=== PATIENT | male | born 1985 | race Caucasian/White ===

== ENCOUNTER 2022-06-12 17:07 | Emergency (ER) | payer OTHER, SELFPAY ==
--- NOTE | ~2022-06-12 | XR_ITS ---
EXAMINATION: XR LUMBOSACRAL SPINE CLINICAL INFORMATION: Shoveling snow now with back pain COMPARISON: None TECHNIQUE: Three views of the lumbosacral spine. FINDINGS: Some minimal spondylitic changes are seen with some minor disc space narrowing at L2-L3. Some mild endplate changes are seen at the superior endplates of L3-L5. No fractures or destructive lesions. A radiopaque ovoid structure is present overlying the left hemipelvis XR/XR lumbar spine 2-3V IMPRESSION: Mild degenerative changes as described above. No acute finding.
[2022-06-12 17:28] VITALS: BP 125/81; PULSE 88; RESP 18; TEMP 37.2; O2SAT 96; BMI 27.2
--- NOTE | 2022-06-12 17:32 | ED_ITS ---
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 He states when he was shoveling he felt a crack in his back x3 and has had difficulty ambulating stents. He states it is severe in nature, he took ibuprofen and gabapentin at home prior to coming in. He denies any bowel or bladder incontinence. He states the pain is worse with movement and trying to walk. <MARIAN Rose - Last Filed: 06/12/22 21:13> MD elicited complaint: back pain and back injury <MARIAN Rose - Last Filed: 06/12/22 21:13> Onset (ago): hour(s) <MARIAN Rose - Last Filed: 06/12/22 21:13> Timing: constant <MARIAN Rose - Last Filed: 06/12/22 21:13> Severity: severe <MARIAN Rose - Last Filed: 06/12/22 21:13> Pain scale (0-10): 8 <MARIAN Rose - Last Filed: 06/12/22 21:13> Similar Symptoms Previously: No <MARIAN Rose - Last Filed: 06/12/22 21:13> Quality: sharp <MARIAN Rose - Last Filed: 06/12/22 21:13> Radiation: none <MARIAN Rose - Last Filed: 06/12/22 21:13> Exacerbating factors: movement and walking <MARIAN Rose - Last Filed: 06/12/22 21:13> Relieving factors: immobilization <MARIAN Rose - Last Filed: 06/12/22 21:13> Context: while lifting and turning/twisting <MARIAN Rose - Last Filed: 06/12/22 21:13> Associated symptoms: denies other symptoms <MARIAN Rose - Last Filed: 06/12/22 21:13> Treatments prior to arrival: NSAIDS and other medications <MARIAN Rose - Last Filed: 06/12/22 21:13> Work related injury: No <MARIAN Rose - Last Filed: 06/12/22 21:13> Related Data Home Medications: Previous Rx's Medication Instructions Recorded cyclobenzaprine 10 mg tablet 10 mg PO TID PRN muscle spasm #14 06/12/22 tabs hydrocodone 5 mg-acetaminophen 325 1 tab PO Q8H PRN severe pain 06/12/22 mg tablet (scale score 7-10) #5 tabs ibuprofen 600 mg tablet 600 mg PO Q8H PRN pain #14 tabs 06/12/22 lidocaine 5 % topical patch 1 patch topical DAILY #15 ea 06/12/22 <Ashanti Peng NP - Last Filed: 06/12/22 17:34> Allergies/Adverse Reactions: Allergies Allergy/AdvReac Type Severity Reaction Status Date / Time No Known Allergies Allergy Verified 06/12/22 17:26 <Ashanti Peng NP - Last Filed: 06/12/22 17:34> Review of Systems Review of Systems: Constitutional: No Fever, No Chills Cardiovascular: No Chest Pain, No SOB Gastrointestinal: No Nausea, No Vomiting, No Diarrhea, No abdominal Pain Genitourinary: No Dysuria, No Urinary Frequency, No Hematuria, no incontinence Musculoskeletal: + joint pain, +Myalgias Skin: No Skin Lesions, No rash Neuro: No Weakness, No Numbness, No Dizziness, No Headache Heme/Lymph: No Bruising, No Lymphadenopathy <MARIAN Rose Last Filed: 06/12/22 21:13> COUNTS INCLUDE 234 BEDS AT THE [facility] Social History Social History: Social History Advance Directives: No Advance Directives Information Provided: Yes <Ashanti Peng NP - Last Filed: 06/12/22 17:34> Physical Exam Vital Signs: Vital Signs: Last Vital Signs Temp 99 F 06/12/22 17:28 Pulse 88 06/12/22 17:28 Resp 18 06/12/22 17:28 BP 125/81 06/12/22 17:28 Pulse Ox 96 06/12/22 17:28 O2 Del Method 06/12/22 17:28 BMI result Body Mass Index 27.2 <Ashanti Peng NP - Last Filed: 06/12/22 17:34> Vital Signs: Last Vital Signs Temp 99 F 06/12/22 17:28 Pulse 88 06/12/22 17:28 Resp 18 06/12/22 17:28 BP 125/81 06/12/22 17:28 Pulse Ox 96 06/12/22 17:28 O2 Del Method 06/12/22 17:28 BMI result Body Mass Index 27.2 <MARIAN Rose - Last Filed: 06/12/22 21:13> Appearance: Alert. Oriented X3. No acute distress. HEENT: normal inspection CVS: Normal heart rate and rhythm. Pulses normal. Respiratory: No respiratory distress. Skin: Skin warm and dry. Normal skin color. Normal skin turgor. No rashes. Back: soft tissue tenderness throughout the entire lumbar area, L>R. Extremities: normal inspection, normal ROM. +straight leg raise bilaterally at 30 degrees Neuro: Oriented X 3. No motor deficit. No sensory deficit. <MARIAN Rose - Last Filed: 06/12/22 21:13> Course Course Course Narrative: This is a rapid medical exam. Deferred additional HPI, ROS and PE to primary provider. 37-year-old male here with lower back pain after shoveling earlier today and feeling a cracking sensation in his lower back. Patient took gabapentin and ibuprofen prior to arrival. Patient reports difficulty with ambulating since the injury. Will check x-ray. Vitals stable <Ashanti Peng NP - Last Filed: 06/12/22 17:34> Reevaluation(s) Reevaluation #1: X-ray showing some mild degenerative changes, no traumatic injury. He has no red flag symptoms of low back pain. After medication patient is up ambulating to the bathroom with no assistance. Comfortable discharge home with symptomatic management for lumbar strain. Stable for DC. <MARIAN Rose - Last Filed: 06/12/22 21:13> Medications Administered Discontinued Medications Generic Name Dose Route Start Last Admin Trade Name Freq PRN Reason Stop Dose Admin Ketorolac Tromethamine 30 mg 06/12/22 19:52 06/12/22 19:58 Ketorolac Tromethamine 30 Mg/Ml Vial IM 06/12/22 19:53 30 mg ONCE ONE Administration Oxycodone HCl 5 mg 06/12/22 19:08 06/12/22 19:25 Oxycodone Hcl Immed Release 5 Mg Tablet PO 06/12/22 19:09 5 mg ONCE ONE Administration <Ashanti Peng NP - Last Filed: 06/12/22 17:34> Medications Administered Discontinued Medications Generic Name Dose Route Start Last Admin Trade Name Freq PRN Reason Stop Dose Admin Ketorolac Tromethamine 30 mg 06/12/22 19:52 06/12/22 19:58 Ketorolac Tromethamine 30 Mg/Ml Vial IM 06/12/22 19:53 30 mg ONCE ONE Administration Oxycodone HCl 5 mg 06/12/22 19:08 06/12/22 19:25 Oxycodone Hcl Immed Release 5 Mg Tablet PO 06/12/22 19:09 5 mg ONCE ONE Administration <MARIAN Rose - Last Filed: 06/12/22 21:13> Discharge Plan Discharge Clinical Impression: Strain of lumbar region <Ashanti Peng NP - Last Filed: 06/12/22 17:34> Patient Disposition: Home, Self-Care <Ashanti Peng NP - Last Filed: 06/12/22 17:34> Instructions: Low Back Strain (ED), Lower Back Exercises (ED) <Ashanti Peng NP - Last Filed: 06/12/22 17:34> Additional Instructions: Your x-ray today did not show any traumatic injuries. No bending, lifting or twisting. Use ice several times per day for 20 minutes at a time for the next 48 hours and then change to heat. Take medications as prescribed to help with pain and discomfort. Follow up with your Primary Care Doctor this week. If your pain worsens, if you develop new numbness, tingling, weakness, loss of function or incontinence call 911 or come back to the ER right away for evaluation. [place] radiograf?a de hoy no mostr? ninguna lesi?n traum?lauro. Sin doblar, levantar o torcer. Use hielo varias veces al d?a marcy 20 minutos a la vez marcy las pr?ximas 48 horas y luego cambie a calor. [place] los medicamentos seg?n lo prescrito para ayudar con el dolor y la incomodidad. Richard un seguimiento con paris m?dico de atenci?n primaria esta semana. Si paris dolor empeora, si desarrolla entumecimiento, hormigueo, debilidad, p?rdida de funci?n o incontinencia, llame al 911 o regrese a la mary de emergencias de inmediato para ted evaluaci?n. <Ashanti Peng NP - Last Filed: 06/12/22 17:34> Prescriptions: New cyclobenzaprine 10 mg tablet 10 mg PO TID PRN (Reason: muscle spasm) Qty: 14 0RF ibuprofen 600 mg tablet 600 mg PO Q8H PRN (Reason: pain) Qty: 14 0RF lidocaine 5 % adhesive patch,medicated 1 patch topical DAILY Qty: 15 0RF Rx Instructions: leave on most painful area for up to 12 hrs hydrocodone-acetaminophen 5-325 mg tablet 1 tab PO Q8H PRN (Reason: severe pain (scale score 7-10)) Qty: 5 0RF Rx Instructions: Partial Fill upon patient request. <Ashanti Peng NP - Last Filed: 06/12/22 17:34> Stand Alone Forms: Work/School Release <Ashanti Peng NP - Last Filed: 06/12/22 17:34> Interventions: ED Discharge Assessment Last Done: 06/12/22 21:02 <Ashanti Peng NP - Last Filed: 06/12/22 17:34> Discharge Date/Time: 06/12/22 21:02 <Ashanti Peng NP - Last Filed: 06/12/22 17:34>
[2022-06-12] MEDS: oxyCODONE HCl Immed Release 5 MG TABLET PO (19:25)
[2022-06-12] MEDS: Ketorolac Tromethamine 30 MG/ML VIAL IM (19:58)
--- NOTE | 2022-06-12 20:00 | PC.NURSE ---
pt medicated for pain per order
--- NOTE | 2022-06-12 20:38 | PC.NURSE ---
pr given oxycodone 5mg and toradol IM for 10/10 back pain from shoveling. pt observed ambulating with minimal assistance oob to BR and back.
== END 2022-06-12 21:02 | disposition home or self-care (01) ==
PROVIDERS: Emergency Provider Emergency Medicine; PCP Nurse Practitioner Family
DX: S39.012A Strain of muscle, fascia and tendon of lower back, initial encounter (principal); X50.0XXA Overexertion from strenuous movement or load, initial encounter; Y93.H1 Activity, digging, shoveling and raking; Y92.038 Other place in apartment as the place of occurrence of the external cause; Y99.9 Unspecified external cause status
CPT/HCPCS: 72100; 96372; 99283; 99284; J1885

== ENCOUNTER 2022-09-16 10:58 | Emergency (ER) | payer OTHER, SELFPAY ==
--- NOTE | ~2022-09-16 | CT_ITS ---
EXAMINATION: CT ABDOMEN AND PELVIS WITHOUT CONTRAST CLINICAL INFORMATION: Right flank pain. Right lower quadrant pain. Nausea. Symptoms for 3 days. COMPARISON: Ultrasound abdomen 09/16/2022 TECHNIQUE: Multidetector volumetric imaging was performed from the superior aspect of the liver through the pubic symphysis. Sagittal and coronal reformatted images were obtained on the technologist's workstation. This CT examination was performed using dose optimization techniques as appropriate, variously including the following: *Automated exposure control *Adjustment of mA and/or kV according to patient size (this includes techniques or standardized protocols for targeted exams where dose is matched to indication/reason for exam; i.e. extremities or head) *Use of iterative reconstruction technique DLP: 584 mGy-cm FINDINGS: LUNG BASES: Mild right basilar atelectasis. LIVER, GALLBLADDER, AND BILIARY TREE: Hepatic hypoattenuation suggesting hepatic steatosis. Scattered small calcifications in the liver, has a chronic appearance, could represent granulomatous disease.. No focal hepatic lesion or biliary ductal dilatation is present. The gallbladder is unremarkable with no evidence of radiopaque gallstones, gallbladder wall thickening, or obvious pericholecystic inflammatory changes. PANCREAS: Unremarkable. SPLEEN: Unremarkable. ADRENAL GLANDS: Unremarkable. KIDNEYS AND URETERS: 2 small punctate nonobstructing calculi in the lower pole right kidney. Punctate nonobstructing calculi in the lower pole left kidney. No radiodense ureteral calculi. No hydronephrosis. No suspicious renal lesions. No significant perinephric stranding. BLADDER: Partially distended without gross abnormality. No radiodense calculi seen within the lumen of the bladder. GASTROINTESTINAL TRACT: Stomach has luminal contents limiting evaluation. No dilated small bowel loops. Small-moderate volume stool in the large colon. Prominent stool in the rectum. No colonic wall thickening or pericolonic inflammatory changes seen. Appendix appears unremarkable. No free fluid. No free air. ABDOMINAL WALL: Small fat-containing umbilical hernia. LYMPH NODES: No adenopathy by size criteria is seen in the abdomen or pelvis... VASCULAR: Normal caliber aorta. PELVIC VISCERA: Within normal limits OSSEOUS STRUCTURES: No acute or suspicious osseous abnormality. CT/CT abdomen pelvis wo IV con IMPRESSION: 1. Hepatic steatosis. Scattered liver calcifications could reflect metastatic disease. 2. Bilateral renal calculi. No hydronephrosis. 3. Otherwise, no acute findings identified in the abdomen or pelvis. Fleischner guidelines were followed.
--- NOTE | ~2022-09-16 | US_ITS ---
EXAMINATION: US ABDOMEN LIMITED CLINICAL INFORMATION: Right upper quadrant pain. Rule out: Cholelithiasis. COMPARISON: None available. TECHNIQUE: Real-time imaging of the right upper quadrant abdominal viscera. FINDINGS: PANCREAS: Normal. LIVER: Diffuse increased parenchymal echogenicity. Focal fatty sparing adjacent to the gallbladder. No focal hepatic lesion. There is no intrahepatic biliary duct dilatation seen. GALLBLADDER: Normal. The gallbladder is physiologically distended without evidence of stones, sludge, polyps, wall thickening or pericholecystic fluid. COMMON BILE DUCT: Normal in caliber measuring 0.4 cm in diameter. RIGHT KIDNEY: Normal. No hydronephrosis. No renal calculi or focal parenchymal lesions. The kidney measures 13 cm in maximum dimension. FREE FLUID: None. US/US abdomen limited IMPRESSION: There is generalized increase in hepatic echotexture, consistent with fatty infiltration or hepatocellular disease. Please correlate clinically. No focal hepatic mass or intrahepatic biliary duct dilatation is seen. No evidence of cholelithiasis.
[2022-09-16 11:09] VITALS: BP 118/67; PULSE 89; RESP 18; TEMP 36.6; O2SAT 95; BMI 27.2
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
[2022-09-16 11:41] LABS: MANUAL DIFF FLAG NO
[2022-09-16 11:42] LABS: Basophils Percent Auto 0.3 % (0-2); Eosinophils Absolute Auto 0.1 X10*3/uL (0.0-0.4); Eosinophils Percent Auto 1.4 % (0-4); Hematocrit 49.8 % (42.0-52.0); Hemoglobin 16.6 g/dl (14.0-18.0); Imm Gran Abs Auto 0.03 X10*3/uL (0.00-0.03); Imm Gran Pct Auto 0.5 % (0.0-0.4); Lymphocytes Absolute Auto 1.8 X10*3/uL (1.2-4.9); Lymphocytes Percent Auto 30.3 % (20-40); Mean Corpuscular HGB Conc 33.3 g/dl (31.0-36.0); Mean Corpuscular Hemoglobin 30.2 pg (27.0-33.0); Mean Corpuscular Volume 90.7 fL (80.0-98.0); Monocytes Absolute Auto 0.6 X10*3/uL (0.1-1.2); Monocytes Percent Auto 10.4 % (2-11); Neutrophils Absolute Auto 3.3 x10*3/uL (2.0-8.3); Neutrophils Percent Auto 57.1 % (45-73); Platelet Count 214 X10*3/uL (160-400); Red Blood Count 5.49 X10*6/uL (4.60-5.80); Red Cell Distribution Width 12.2 % (11.0-16.0); White Blood Count 5.8 X10*3/uL (4.8-10.8)
[2022-09-16 12:07] LABS: Alanine Aminotransferase 63 U/L (0-40); Alkaline Phosphatase 77 U/L (39-117); Anion Gap 12 (12-20); Aspartate Amino Transferase 35 U/L (5-37); Bilirubin Total 1.1 mg/dL (0.0-1.0); Blood Urea Nitrogen 15 mg/dL (9-16); Calcium 8.9 mg/dL (8.4-10.2); Carbon Dioxide 26 mmol/L (22-29); Chloride 103 mmol/L (96-108); Estimated Glomerular Filt Rate > 60; Glucose Random 244 mg/dL (60-115); Lipase 13 U/L (8-78); Magnesium 2.1 mg/dL (1.6-2.6); Sodium 137 mmol/L (135-145); Total Protein 7.3 g/dL (6.5-8.0)
[2022-09-16] MEDS: Ketorolac Tromethamine 30 MG/ML VIAL IM (12:20)
[2022-09-16 12:29] LABS: Appearance Urine Clear; Color Urine Yellow; Glucose Urine UA >=1000 mg/dL (Negative); Leukocyte Esterase Urine Negative (Negative); Nitrite Urine Negative (Negative); PH 6.5 (5.0-9.0); Specific Gravity - Urine >= 1.030 (1.005-1.025); UMIC TRIGGER UACC YES; Urine Blood Negative (Negative); Urine Ketones Negative (Negative); Urine Protein Negative (Neg-Trace)
[2022-09-16 12:34] LABS: Bacteria Urine None Seen (None Seen); Hyaline Casts Urine 0-2 /LPF (0-2); RBC Urine 0-2 /HPF (0-2); Squamous Epithelial Cell Urine 0-2 /HPF (0-2); WBC Urine 0-5 /HPF (0-5)
== END 2022-09-16 14:07 | disposition home or self-care (01) ==
PROVIDERS: Physician Assistant; Physician Assistant Medical; Emergency Provider Emergency Medicine
DX: M54.50 Low back pain, unspecified (principal)
CPT/HCPCS: 36415; 74176; 76705; 80053; 81001; 83690; 83735; 85025; 96372; 99283; 99284; J1885